=== PATIENT | female | born 1960 | race Caucasian/White ===

== ENCOUNTER 2024-06-10 14:12 | Outpatient (CLI) | payer MEDICARE | END 2024-06-10 14:13 | disposition home or self-care (01) | LOC: BICMAMMO 14:12 | PROVIDERS: ATTEND Student in an Organized Health Care Education/Training Program | DX: Z12.31 Encounter for screening mammogram for malignant neoplasm of breast (principal); Z13.820 Encounter for screening for osteoporosis; Z80.3 Family history of malignant neoplasm of breast; Z91.89 Other specified personal risk factors, not elsewhere classified; Z78.0 Asymptomatic menopausal state | CPT/HCPCS: 77063; 77067; 77080 ==